=== PATIENT | female | born 1930 | race Caucasian/White ===

== ENCOUNTER 2017-06-01 05:23 | Inpatient (IN) | payer MEDICARE ==
[~2017-06-01] VITALS: Ht 139.7 cm; Wt 54.0 kg
--- NOTE | 2017-06-01 05:53 | PHYS DOC ---
General Chief Complaint: CHEST PAIN Stated Complaint: CHEST PAIN Time Seen by MD: 05:41 Source: patient, EMS Exam Limitations: other (poor historian) Problems: (ESTRELLA DENNEY DO) Time Seen by MD: 06:16 Problems: (BROOKLYNN HAND MD) History of Present Illness Initial Comments 87-year-old female brought to the ED by EMS for chest pain. Patient states that approximately 11 PM last night she developed anterior chest pain described as sharp and achy moderate in intensity worse with exertion somewhat better with rest. She had concomitant feeling of warmth no actual sweats, mild nausea no vomiting or shortness of breath no arm or neck radiation. Over time the pain has changed somewhat in quality and now patient states that her chest pain radiates straight through to her back. When she is active the pain intensifies she denies any trauma or prior chest pain workups. No relief with nitroglycerin in route patient also received aspirin. Patient is a vague historian, states she has high blood pressure high cholesterol and a "thyroid problem" as well as macular degeneration. Further she takes Pradaxa but is unaware of the reason she states that her daughter-in- law will be here shortly and she will be able to tell us the patient's medical history. Vital signs are stable on arrival the patient is in no apparent distress. Timing/Duration: other Severity: moderate Modifying Factors: worse with movement, improves with rest Associated Symptoms: chest pain, diaphoresis, other (ESTRELLA DENNEY DO) Allergies: Coded Allergies: sulfamethoxazole (Verified Allergy, Intermediate, 06/01/17) trimethoprim (Verified Allergy, Intermediate, 06/01/17) Review of Systems Constitutional: denies chills, denies fever, malaise EENTM: denies eye pain, denies ear pain, denies nose pain, denies throat pain Respiratory: denies cough, denies shortness of breath, denies wheezing Cardiovascular: chest pain, denies palpitations, denies syncope Gastrointestinal: denies abdominal pain, denies nausea, denies vomiting Genitourinary: denies dysuria, denies frequency, denies hematuria Musculoskeletal: see HPI, denies joint swelling, denies muscle pain, denies muscle stiffness, denies neck pain Psychiatric/Neurological: denies headache, denies numbness, denies paresthesia , denies weakness (ESTRELLA DENNEY DO) Physical Exam General Appearance: WD/WN, no apparent distress Ear, Nose, Throat: hearing grossly normal, normal ENT inspection, normal pharynx Neck: non-tender, supple Respiratory: chest non-tender, normal breath sounds, no respiratory distress Cardiovascular: normal peripheral pulses, regular rate, rhythm Gastrointestinal: normal bowel sounds (it was in she is drinking), non tender, soft Back: no CVA tenderness, no vertebral tenderness ( fine for Dr. Marquis'S) Extremities: non-tender, normal inspection, no pedal edema Neurologic/Psychiatric: animal feeder II-XII nml as tested, no motor/sensory deficits, alert, normal mood/affect Skin: normal color, warm/dry (ESTRELLA DENNEY DO) Orders, Labs, Meds 0605: EKG, labs, and CT evaluation of the aorta are all pending. Patient signed out to Dr. Hand at shift change, see her documentation for more history, results and patient disposition. (ESTRELLA DENNEY DO) Orders, Labs, Meds [address] [address] IMAGING REPORT Signed PATIENT: LISSETTE BOO ACCOUNT: [id number] : 1930 LOCATION: ER AGE: 87 SEX: F EXAM STATUS: REG ER ORD. PHYSICIAN: ESTRELLA DENNEY DO REASON: cp rad to back PROCEDURE: CT ANGIOGRAPHY CHEST Indication: Chest pain with slight radiation to back. Technique: Axial images and coronal and sagittal reformatted images are provided. Coronal maximum intensity projection reformatted images are provided. 60 mL of intravenous Omnipaque 300 was administered without complication. No comparison is available. One or more of the following individualized dose reduction techniques were utilized for this examination: 1. Automated exposure control 2. Adjustment of the mA and/or kV according to patient size 3. Use of iterative reconstruction technique Findings: Contrast bolus is satisfactory. There is no filling defect to suggest pulmonary embolism. There is atheromatous disease in the thoracic aorta. The heart is mildly enlarged. Coronary artery calcifications are noted. Small pericardial effusion is noted. There is no hilar or mediastinal adenopathy. There is dependent atelectasis. There is no consolidation. Central airways are patent. There is granulomatous disease. There is minimal left pleural effusion. Indeterminate lesion is noted in the left kidney measuring 13 mm. There are degenerative changes in the spine. IMPRESSION: 1. Negative for pulmonary embolism. 2. Cardiomegaly. 3. Trace left pleural effusion. Electronically signed by: Enrique Dominguez MD (06/01/2017 7:17 AM) [facility] [place] DICTATED AND SIGNED BY: ENRIQUE DOMINGUEZ MD DATE: 06/01/17704 CC: MIMA FRANCO APRN; BROOKLYNN HAND MD; ESTRELLA DENNEY DO ~ EKG at 0602 showed atrial fibrillation at rate of 95, abnormal left axis deviation, left anterior fascicular block, LVH, prolonged QT, no acute ST and T wave abnormality Evaluation of patient in ER showed 87-year-old female patient with lower chest / upper abdominal pain since last night with radiation to her back since this morning that did not get better with nitroglycerin given by EMS. She had potassium of 2.8 and oral potassium was started. BUN was 26 and creatinine was 1.[address] of chest for dissection protocol was changed to only CT of chest. Zofran and Pepcid was ordered and Dr. Oreilly informed at 0639 who was agreed with plan of admission (BROOKLYNN HAND MD) Departure: Impression: Primary Impression: Acute chest pain Additional Impressions: Hypokalemia Atrial fibrillation Renal insufficiency CHF (congestive heart failure) Disposition: ADMITTED INPATIENT (At 0639) Admitting Physician: Rosenda Oreilly (BROOKLYNN HAND MD) Condition: IMPROVED ESTRELLA DENNEY DO Jun 01, 2017 05:53 BROOKLYNN HAND MD Jun 01, 2017 06:39
[2017-06-01] MEDS ORDERED: NITROGLYCERIN SUBLINGUAL 0.4 MG BOTTLE OF 25. SL PRN (06:00)
[2017-06-01] MEDS ORDERED: MORPHINE SULFATE 2 MG/ML DISP.SYRIN. IV/SQ PRN (06:00)
[2017-06-01 06:07] LABS: BASO % 1 % (0-3); EOS % 0 % (0-3); HEMATOCRIT 35.8 % (36.0-47.0); HEMOGLOBIN 12.2 g/dL (12.0-15.5); LYMPH % 12 % (24-48); MEAN CORPUSCULAR HEMOGLOBIN 30 pg (25-35); MEAN CORPUSCULAR HGB CONC 34 g/dL (31-37); MEAN CORPUSCULAR VOLUME 89 fL (79-100); MONO # 0.9 x10^3/uL (0.0-1.1); MONO % 11 % (0-9); NEUT # 6.5 x10^3uL (1.8-7.7); NEUT % 77 % (31-73); PLATELET COUNT 419 x10^3/uL (140-400); RED BLOOD COUNT 4.03 x10^6/uL (3.50-5.40); RED CELL DISTRIBUTION WIDTH 12.8 % (11.5-14.5); WHITE BLOOD COUNT 8.4 x10^3/uL (4.0-11.0)
[2017-06-01 06:27] LABS: ALBUMIN 3.2 g/dL (3.4-5.0); ALBUMIN/GLOBULIN RATIO 0.7 (1.0-1.7); CALCIUM 9.5 mg/dL (8.5-10.1); CREATININE 1.2 mg/dL (0.6-1.0); GFR 42.4; TOTAL BILIRUBIN 0.5 mg/dL (0.2-1.0); TOTAL PROTEIN 7.5 g/dL (6.4-8.2)
[2017-06-01 06:30] LABS: POTASSIUM 2.8 mmol/L (3.5-5.1)
[2017-06-01] MEDS ORDERED: CONTRAST GIVEN MC PRN (06:30)
[2017-06-01] MEDS ORDERED: IOHEXOL 300 MG/ML 50 ML VIAL. IV ONE ×2 (06:30)
[2017-06-01] MEDS ORDERED: POTASSIUM CHLORIDE 20 MEQ TABLET.ER. PO ONE (07:00)
[2017-06-01] MEDS ORDERED: IOHEXOL 300 MG/ML 75 ML VIAL. IV ONE (07:00)
[2017-06-01] MEDS ORDERED: FAMOTIDINE 20 MG/2 ML VIAL IVP ONE (07:00)
[2017-06-01] MEDS ORDERED: ONDANSETRON PF 4 MG/2 ML VIAL. IV ONE (07:00)
[2017-06-01] MEDS ORDERED: IV NORMAL SALINE 500ML 500 ML IV ONE (07:00)
--- NOTE | 2017-06-01 07:18 | RAD ---
Portable chest, 06/01/2017: History: Chest pain The heart is at the upper limits of normal in size. There is calcific plaquing of the aorta. The pulmonary vascularity is normal. No pulmonary infiltrate is seen. There is blunting of the left lateral costophrenic angle compatible with scarring versus a tiny amount of pleural fluid. IMPRESSION: 1. Aortic atherosclerosis. 2. No acute infiltrates. 3. Possible tiny left pleural effusion.
--- NOTE | 2017-06-01 07:21 | RAD ---
Indication: Chest pain with slight radiation to back. Technique: Axial images and coronal and sagittal reformatted images are provided. Coronal maximum intensity projection reformatted images are provided. 60 mL of intravenous Omnipaque 300 was administered without complication. No comparison is available. One or more of the following individualized dose reduction techniques were utilized for this examination: 1. Automated exposure control 2. Adjustment of the mA and/or kV according to patient size 3. Use of iterative reconstruction technique Findings: Contrast bolus is satisfactory. There is no filling defect to suggest pulmonary embolism. There is atheromatous disease in the thoracic aorta. The heart is mildly enlarged. Coronary artery calcifications are noted. Small pericardial effusion is noted. There is no hilar or mediastinal adenopathy. There is dependent atelectasis. There is no consolidation. Central airways are patent. There is granulomatous disease. There is minimal left pleural effusion. Indeterminate lesion is noted in the left kidney measuring 13 mm. There are degenerative changes in the spine. IMPRESSION: 1. Negative for pulmonary embolism. 2. Cardiomegaly. 3. Trace left pleural effusion. Electronically signed by: Enrique Dominguez MD (06/01/2017 7:17 AM) [facility]
[2017-06-01 08:17] VITALS: BP 125/70
[2017-06-01] MEDS ORDERED: KETOROLAC 30 MG/ML VIAL. IV ONE (09:30)
--- NOTE | 2017-06-01 09:42 | PDOC2 ---
DANUTA CRUZ W[employer] SYSTEMS DESIGNER 06/01/17 0942: CONSULT Date of Admission DATE: 06/01/17 TIME: 09:22 Reason for Consult: Chest pain Problem List Problems Medical Problems: (1) Acute chest pain Status: Acute (2) Atrial fibrillation Status: Acute (3) CHF (congestive heart failure) Status: Acute (4) Hypokalemia Status: Acute (5) Renal insufficiency Status: Acute History of Present Illness This is a pleasant 85-year-old female who presented to the emergency room with chief complaint of chest pain. She has a past medical history of chronic atrial fibrillation, hypertension, hyperlipidemia and hypothyroidism. Earlier this week she had an episode where she became generalized achiness and lack of appetite. At 1st she thought she was coming down with the flu but it lasted about 3 days without fever, cough or shortness of breath and yesterday she had a spontaneous return of her appetite. Last night around 11:00 p.m. she started to have abdominal discomfort and after about an hour it radiated up into her chest. She went to bed and fell asleep at about 3 o'clock this morning she woke up to go to the bathroom and the pain had got up into her throat and was going across her shoulder blades. She was so uncomfortable she sat up in the recliner. The pain seemed to get worse with activity and better if she could sit and relax. It was not associated with any shortness of breath, nausea, vomiting or diaphoresis. It increases with deep breathing. She finally decided to come into the emergency room for evaluation. She continues to have the pain present at this time it is in her substernal region and it feels more of like an ache that becomes a little bit more intense when she takes a deep breath. She denies any palpitations, recent change in function prior to this week, PND or orthopnea. Review of systems-review of 10 organ systems is negative except for as in HPI. Past medical/surgical - history is significant for chronic atrial fibrillation, hypertension, hyperlipidemia, cholecystectomy and hypothyroidism. Family history - no premature coronary artery disease. Social history -she lives at home and is taking care of her who has dementia. She has a great support system in her children that live closely. She denies any alcohol or tobacco use. Allergies-sulfa and trimethoprim Physical Exam Patient is an 85-year-old female. GENERAL: This is a well developed, well nourished female. No apparent distress. SKIN: Warm and dry with normal skin turgor. Negative for pallor. No lesions or rashes noted. EYES: Conjunctiva are clear. Extraocular movements are intact. No xanthelasma. HEAD AND NECK: Oral mucosa is moist. There is no cyanosis. Neck is supple. Jugular venous pressure is flat. Carotid pulses are 2/2 bilaterally. No carotid bruits. There is no obvious thyromegaly. HEART: Regular rate and rhythm. Normal S1 and S2. No S3. No S4. No significant murmur. No rub. PMI is not displaced. LUNGS: Effort is good. There is symmetric expansion bilaterally. Clear to auscultation bilaterally. No wheezes. No crackles. No rhonchi. ABDOMEN: Normal active bowel sounds. Soft. Nontender. EXTREMITIES: No clubbing. No cyanosis. No edema of lower extremities. Palpable pedal pulses. MUSCULOSKELETAL: No kyphosis. No scoliosis. No localized tenderness or stiffness. Gait appears normal. NEUROLOGIC: Alert and oriented times three. Cranial nerves III-XII are grossly intact. Good motor tone and strength in the upper and lower extremities bilaterally. PSYCHOLOGIC: This is a pleasant patient with a normal affect. Procedure Documentation ECHOCARDIOGRAM IMPRESSION (06/28/2015): The left ventricle is normal in size. There is borderline concentric left ventricular hypertrophy. There is asymmetric thickening of the basal septum with an increase in LVOT velocity of 1.4 m/s. No significant regional wall motion abnormalities are identified. The left ventricular systolic function is normal with an estimated ejection fraction of 65-70%. The left ventricular diastolic cannot be determined. The left atrium appears mildly dilated. The proximal ascending aorta appears mildly dilated at 3.6 cm. There is mild aortic valve sclerosis. There is mild mitral annular calcification. There is mild aortic, pulmonic and tricuspid regurgitation. The estimated pulmonary artery systolic pressure is 36 mmHg, consistent with mild pulmonary hypertension. Compared to the report (images were not available for review) of the study dated 06/25/2014, left atrial and proximal ascending aortic dilatation are new findings. LEXISCAN NUCLEAR STRESS TEST IMPRESSION (07/01/2014): Hemodynamic response: There was a normal heart rate and a normal blood pressure response to stress. Clinical response: There was no chest pain during stress. Arrhythmias: Premature ventricular complexes. Stress ECG: There were no significant stress induced ECG changes. Myocardial perfusion: Normal perfusion without evidence of infarction or ischemia. Wall motion: Normal. Ejection fraction: 70%. Compared to the report (images were not available for review) from the previous study performed on 10/12/2012, there was no significant change. ECHOCARDIOGRAM IMPRESSION (06/25/2014): There is mild concentric left ventricular hypertrophy. There is asymmetric thickening of the basal septum with a mild increase in LVOT velocity of 1.3 m/ s. The left ventricular systolic function is normal with an estimated ejection fraction of 61%. There is evidence of decreased diastolic compliance of the left ventricle consistent with mild diastolic dysfunction. There is mild aortic valve sclerosis. There is mild aortic regurgitation. The estimated pulmonary artery systolic pressure is 38 mmHg, consistent with mild pulmonary hypertension. Compared to the report (images were not available for review) of the study dated 10/02/2012 , mild pulmonary hypertension is a new finding. PRELIMINARY EVENT RECORDER REPORT (06/18/2014): 14 beat run of irregular paroxysmal supraventricular tachycardia at a heart rate of 127 bpm, possible atrial fibrillation. CAROTID ULTRASOUND IMPRESSION (11/15/2012): Bilateral within normal limits ICA. Bilateral vertebral antegrade flow. Assessment / Plan Chest pain - Likely pleurisy. Plan for Tordol. Continue with rule out protocol. Plan for OP echocardiogram Atrial fibrillation, paroxysmal vs permanent. The patient is currently in atrial fibrillation with a controlled rate. [id number] score is 3. Continue Pradaxa for stroke prophylaxis. Continue Diltiazem for rate management. We stopped her Multaq due to failure to keep her in sinus rhythm and cost. She is asymptomatic with her atrial fibrillation. Hypertension, controlled. Continue present anti-hypertensive medication. Hyperlipidemia. Her goal LDL is < 100 mg/dL. Continue Pravastatin Aortic regurgitation, Mild. Pulmonary Hypertension, Mild Current Medications Current Medications Nitroglycerin (Nitrostat) 0.4 mg PRN Q5MIN PRN SL CP RATING > 1/10; Start at 06:00; Stop 06/02/17 at 05:59 Morphine Sulfate (Morphine 2mg Syringe) 2 mg PRN Q15MIN PRN IV/SQ PAIN GREATER THAN 3/10; Start 06/01/17 at 06:00; Stop 06/02/17 at 05:59 Iohexol (Omnipaque 300 Mg/ml) 50 ml 1X ONCE IV ; Start 06/01/17 at 06:30; Stop 06/01/17 at 06:31; Status Cancel Iohexol (Omnipaque 300 Mg/ml) 50 ml 1X ONCE IV ; Start 06/01/17 at 06:30; Stop 06/01/17 at 06:31; Status Cancel Info (Do NOT chart on this entry -- for MONITORING) 1 each PRN DAILY PRN MC SEE COMMENTS; Start 06/01/17 at 06:30; Stop 06/03/17 at 06:29 Ondansetron HCl (Zofran) 4 mg 1X ONCE IV Last administered on 06/01/17at 07:11; Start 06/01/17 at 07:00; Stop 06/01/17 at 07:01; Status DC Sodium Chloride 500 ml @ 500 mls/hr 1X ONCE IV Last administered on 06/01/17at 07:10; Start 06/01/17 at 07:00; Stop 06/01/17 at 07:59; Status DC Famotidine (Pepcid Vial) 20 mg 1X ONCE IVP Last administered on 06/01/17at 07:11 ; Start 06/01/17 at 07:00; Stop 06/01/17 at 07:01; Status DC Potassium Chloride (Klor-Con) 40 meq 1X ONCE PO Last administered on 06/01/17at 07:11; Start 06/01/17 at 07:00; Stop 06/01/17 at 07:01; Status DC Iohexol (Omnipaque 300 Mg/ml) 75 ml 1X ONCE IV Last administered on 06/01/17at 06:55; Start 06/01/17 at 07:00; Stop 06/01/17 at 07:01; Status DC Fentanyl Citrate (Fentanyl 2ml Vial) 50 mcg 1X ONCE IM Last administered on 06/01/17at 07:41; Start 06/01/17 at 08:00; Stop 06/01/17 at 08:01; Status DC Ketorolac Tromethamine (Toradol) 30 mg 1X ONCE IV ; Start 06/01/17 at 09:30; Stop 06/01/17 at 09:31 Allergies: Coded Allergies: sulfamethoxazole (Verified Allergy, Intermediate, 06/01/17) trimethoprim (Verified Allergy, Intermediate, 06/01/17) VITALS Vital Signs Date Time Temp Pulse Resp B/P (MAP) Pulse Ox O2 Delivery O2 Flow Rate FiO2 06/01/17 08:17 98.3 95 125/70 (88) 96 Room Air 06/01/17 07:56 22 06/01/17 05:23 94.0 Labs Laboratory Tests Test 06/01/17 05:41 White Blood Count 8.4 x10^3/uL (4.0-11.0) Red Blood Count 4.03 x10^6/uL (3.50-5.40) Hemoglobin 12.2 g/dL (12.0-15.5) Hematocrit 35.8 % (36.0-47.0) Mean Corpuscular Volume 89 fL (79-100) Mean Corpuscular Hemoglobin 30 pg (25-35) Mean Corpuscular Hemoglobin Concent 34 g/dL (31-37) Red Cell Distribution Width 12.8 % (11.5-14.5) Platelet Count 419 x10^3/uL (140-400) Neutrophils (%) (Auto) 77 % (31-73) Lymphocytes (%) (Auto) 12 % (24-48) Monocytes (%) (Auto) 11 % (0-9) Eosinophils (%) (Auto) 0 % (0-3) Basophils (%) (Auto) 1 % (0-3) Neutrophils # (Auto) 6.5 x10^3uL (1.8-7.7) Lymphocytes # (Auto) 1.0 x10^3/uL (1.0-4.8) Monocytes # (Auto) 0.9 x10^3/uL (0.0-1.1) Eosinophils # (Auto) 0.0 x10^3/uL (0.0-0.7) Basophils # (Auto) 0.0 x10^3/uL (0.0-0.2) Prothrombin Time 14.0 SEC (9.4-11.4) Prothromb Time International Ratio 1.4 (0.9-1.1) Activated Partial Thromboplast Time 42 SEC (23-33) D-Dimer (Lesli) 0.63 mg/L (0.00-0.50) Sodium Level 131 mmol/L (136-145) Potassium Level 2.8 mmol/L (3.5-5.1) Chloride Level 92 mmol/L (98-107) Carbon Dioxide Level 31 mmol/L (21-32) Anion Gap 8 (6-14) Blood Urea Nitrogen 26 mg/dL (7-20) Creatinine 1.2 mg/dL (0.6-1.0) Estimated GFR (Cockcroft-Gault) 42.4 BUN/Creatinine Ratio 22 (6-20) Glucose Level 142 mg/dL (70-99) Calcium Level 9.5 mg/dL (8.5-10.1) Total Bilirubin 0.5 mg/dL (0.2-1.0) Aspartate Amino Transf (AST/SGOT) 23 U/L (15-37) Alanine Aminotransferase (ALT/SGPT) 19 U/L (14-59) Alkaline Phosphatase 98 U/L (46-116) Creatine Kinase 103 U/L (26-192) Bedside Troponin I 0.01 ng/ml (<0.08) CW-Lir-R-Type Natriuretic Peptide 1642 pg/mL (0-449) Total Protein 7.5 g/dL (6.4-8.2) Albumin 3.2 g/dL (3.4-5.0) Albumin/Globulin Ratio 0.7 (1.0-1.7) Lipase 82 U/L (73-393) TIFFANY GARRETT Jr, MD 06/01/17 1001: CONSULT Reason for Consult: Chest pain. Referring Physician: Rosenda Oreilly MD Chief Complaint Chest pain. Source: Patient History of Present Illness She is a pleasant 87-year-old female who is well known to our service. She had been doing well until last evening when she was at home and bent over to get something off the floor. After she stood up, she developed left-sided pleuritic chest pain. She denies associated symptoms at that time. This was mild. She then went to sleep. However, at approximately 01:00, she got up to use the bathroom and she still had chest pain. At that point the chest pain radiated to both shoulders and her back. This was worse with deep breaths. Moving in different positions would seem to make this better or worse. She describes this as a pain. Because of the pain, she called 911 and was taken to the emergency room for further evaluation. In the ambulance she was given nitroglycerin and this did not change the pain. In the emergency room she was given 1 dose of IV fentanyl and this also did not help with the pain. When I saw her on the medical unit, she was still having mild chest discomfort that was still pleuritic. She states that she has had no appetite for the past couple of days. However, she denies any nausea, vomiting, or diarrhea. She does have occasional constipation which is unchanged. She denies any abdominal pain. She denies any fever or chills. She denies any shortness of breath except for the fact that the chest pain is pleuritic and this makes it hard for her to take deep breaths. She denies any paroxysmal nocturnal dyspnea, orthopnea, palpitations, lightheadedness, syncope, or lower extremity edema. Because of the chest pain, a cardiology consultation was requested. Allergies: Coded Allergies: sulfamethoxazole (Verified Allergy, Intermediate, 06/01/17) trimethoprim (Verified Allergy, Intermediate, 06/01/17) Review of System Review of 10 organ systems is as per the HPI, otherwise negative. General: Alert, Oriented X3, Cooperative, No acute distress HEENT: Atraumatic, EOMI, Mucous membr. moist/pink Lungs: Clear to auscultation, Normal air movement Heart: Normal S1, Normal S2, No murmurs, Other (Irregularly irregular heart rate.) Abdomen: Normal bowel sounds, Soft, No tenderness, No hepatospenomegaly Extremities: No clubbing, No cyanosis, No edema, Normal pulses, No tenderness/ swelling Skin: No rashes, No breakdown, No significant lesion Neuro: Normal speech, Strength at 5/5 X4 ext, Normal tone, Cranial nerves 3-12 NL Psych/Mental Status: Mental status NL, Mood NL Assessment/Plan Chest pain. Exact etiology unclear. She does not have any ischemic changes on her electrocardiogram. Her 1st troponin level is negative. This sounds more consistent with pleurisy. She does have evidence of a pleural effusion on her x -ray with no evidence of pulmonary infiltrate. I suspect she could possibly have bronchitis. I do not believe this chest pain is related to any sort of cardiac disorder. We will obtain follow-up troponin levels. I will give her 1 dose of IV Toradol to see if this helps with the chest pain. We will plan on an outpatient echocardiogram after discharge. Atrial fibrillation, paroxysmal. Her electrocardiogram from the emergency room shows possible atrial fibrillation versus multifocal atrial tachycardia. We will continue oral anticoagulation for stroke prevention. She was previous in the Multaq but this did not maintain sinus rhythm and this was expensive so we discontinued the medication. Essential hypertension. Blood pressure appears reasonably controlled with the present medications. These should be continued. Hypercholesterolemia. I recommend she continue on the statin medication. Disposition. If she is doing well by later today she could potentially be discharged home later this afternoon or possibly tomorrow. I will leave this up to the discretion of the hospitalist. Problems: DANUTA CRUZ APRN Jun 01, 2017 09:42 TIFFANY GARRETT Jr, MD Jun 01, 2017 10:01
[2017-06-01 10:53] VITALS: BP 113/65
[2017-06-01 11:51] LABS: INFLUENZA A PATIENT NEGATIVE (NEGATIVE); INFLUENZA B PATIENT NEGATIVE (NEGATIVE)
[2017-06-01] MEDS ORDERED: PNEUMOC CONJ VACC 23-VALENT 0.5 ML VIAL. VAX IM ONE (13:00)
[2017-06-01] MEDS ORDERED: LOSA1TAB22 PO (13:53)
[2017-06-01] MEDS ORDERED: LEVO75TA5 PO (13:53)
[2017-06-01] MEDS ORDERED: OMEG-33 PO (13:53)
[2017-06-01] MEDS ORDERED: CALC600T4 PO (13:53)
[2017-06-01] MEDS ORDERED: PRAV20TA2 PO (13:53)
[2017-06-01] MEDS ORDERED: CHOL10003 PO (13:53)
[2017-06-01] MEDS ORDERED: LORA10TA68 PO (13:53)
[2017-06-01] MEDS ORDERED: BIOT300T PO (13:53)
[2017-06-01] MEDS ORDERED: DABI150C PO (13:53)
[2017-06-01] MEDS ORDERED: DILT60TA PO (13:53)
[2017-06-01 16:14] VITALS: BP 125/70
[2017-06-01 17:13] LABS: CALCIUM 8.8 mg/dL (8.5-10.1); CREATININE 0.8 mg/dL (0.6-1.0); GFR 67.7; POTASSIUM 3.2 mmol/L (3.5-5.1)
--- NOTE | 2017-06-01 17:57 | EKG ---
[address] [address] Test Date: 2017-06-01 Test Time: 17:53:07 Pat Name: LISSETTE BOO Department: Room: Gender: F Systems Auditor: RADHA : 1930 Requested By: ESTRELLA DENNEY Order Number: [id number] Reading MD: Measurements Intervals [place] Rate: 96 P: [place]: QRS: -38 QRSD: 106 T: 71 QT: 350 QTc: 449 Interpretive Statements IRREGULAR RHYTHM, NO P-WAVE FOUND ABNORMAL LEFT AXIS DEVIATION LEFT ANTERIOR FASCICULAR BLOCK LEFT VENTRICULAR HYPERTROPHY T ABNORMALITY IN HIGH LATERAL LEADS ABNORMAL ECG RI6.01 No previous ECG available for comparison
--- NOTE | 2017-06-01 18:04 | HP ---
ADMIT DATE: 06/01/2017 HISTORY OF PRESENT ILLNESS: The patient is an 87-year-old female patient who basically presented to Emergency Room with chief complaint of chest pain that basically started as generalized aches and pains with lack of appetite. At first, she thought she was coming down with a flu, but it lasted about 3 days without any fever, cough or shortness of breath and yesterday, she had a spontaneous return of her appetite. Last night, she developed abdominal discomfort for about an hour. It radiated up to the anterior chest. She went to bed and fell asleep. At about 03:00, this morning, she woke up to go to the bathroom and the pain got up into her throat and was going across the shoulder blades and it became so severe that she has to sit up in a recliner and the pain that seemed to get worse with activity and better if she could sit and relax. It was not associated with any shortness of breath, nausea, vomiting or diaphoresis. It increases with deep breathing. She finally decided to come into the Emergency Room for evaluation. By the time I saw her this afternoon, she was chest pain free. She was basically evaluated in the Emergency Room, she was found to have hypokalemia and her first set of cardiac enzyme was negative. She was admitted to do 2 more sets of cardiac enzyme and to consult the cardiology team. PAST MEDICAL HISTORY: Significant for chronic atrial fibrillation, hypertension, hyperlipidemia and hypothyroidism. PAST SURGICAL HISTORY: Significant for cholecystectomy. FAMILY HISTORY: Unremarkable. SOCIAL HISTORY: She lives at home, taking care of her who has dementia and she has great support system in her children that live closely. She does not smoke, drink alcohol or do recreational drugs. ALLERGIES: She is allergic to SULFAMETHOXAZOLE, TRIMETHOPRIM. MEDICATIONS: She is currently on following medications: She is on biotin 5000 mcg daily, calcium carbonate 600 mg twice a day, diltiazem 180 mg once a day, loratadine 10 mg once a day, losartan/hydrochlorothiazide one tablet daily, omega 3 fatty acid 1 capsule once a day, pravastatin 20 mg at bedtime, levothyroxine sodium 75 mcg once a day, Pradaxa 150 mg twice a day, cholecalciferol, vitamin D 2000 international units once a day. REVIEW OF SYSTEMS: Unremarkable and as per history of present illness. PHYSICAL EXAMINATION GENERAL: When I examined her, she was resting, slightly propped up in bed, in no apparent respiratory distress, pale, but no jaundice, cyanosis, or thyromegaly. No jugular distension. No lower limb edema. VITAL SIGNS: Her heart rate was 93, blood pressure was 125/70, temperature was 99.3, respiratory rate 20, and oxygen saturation was 94% on room air. HEAD, EYES, EARS, NOSE AND THROAT: Showed normocephalic, atraumatic. NECK: Supple. HEART: Showed normal first and second heart sounds with no gallop, rub or murmur. CHEST: Clear to auscultation. No crepitation or rhonchi. ABDOMEN: Scaphoid, soft, nontender. NEUROLOGIC: She is awake, alert, responding appropriately. Cranial nerves intact. She moves extremities without difficulty. She ambulates without assistance or assistive devices. LABORATORY DATA AND IMAGING: While in the Emergency Room, she has lab work that includes a CBC with a white cell count of 8400, hemoglobin 12.2, hematocrit 36, MCV 89 and platelet count of 108770. Her prothrombin time was 14, INR 1.4, aPTT 42. D-dimer was 0.63. Her chemistry showed a serum sodium 131, potassium ____, chloride 92, bicarbonate 31, anion gap of 8, BUN 26, creatinine 1.2, estimated GFR was 42 mL per minute. Her glucose 142, calcium was 9.5. Total bilirubin, AST, ALT, alkaline phosphatase were normal. Her beta natriuretic peptide was 1642. Total protein 7.5, albumin was 3.2. Her chest x-ray showed that the heart is upper limit of normal in size. There is calcific plaquing of the aorta, pulmonary vascularity is normal. No pulmonary infiltrates are seen. There is blunting in the left lateral costophrenic angle, compatible with scarring versus a tiny amount of pleural fluid with the impression that the patient has acute aortic atherosclerosis. No acute infiltrates and possible tiny left pleural effusion. The CT scan of the chest showed that there is no filling defect to suggest pulmonary embolism. There is atheromatous disease in the thoracic aorta. The heart is mildly enlarged. Coronary artery calcification are noted. Small pericardial effusion is noted. There is no hilar or mediastinal adenopathy. There is dependent atelectasis. There is no consolidation. Central airways are patent. There is granulomatous disease. There is minimal left pleural effusion, indeterminate lesion is noted in the left kidney measuring 30 mm. There are degenerative changes in the spine. IMPRESSION: So, basically this is an 87-year-old female patient who came in with chest pain that seemed to be pleuritic which aggravated by taking a deep breath. Denied any nausea, vomiting, diaphoresis or shortness of breath, orthopnea, paroxysmal nocturnal dyspnea. Her first set of cardiac enzyme was negative as well. Her EKG showed that she was in atrial fibrillation at rate of 95 with normal left axis deviation, left anterior fascicular block, left ventricular hypertrophy with prolongation of QT interval, no acute ST-T changes. PLAN: My plan is to do 2 more sets of cardiac enzyme and basically continued all his medication. I will do a stat lab work this afternoon to make sure that her potassium is well replenished and we might have to discontinue her hydrochlorothiazide as probably the culprit for her hypokalemia. I will arrange to probably starting her on antibiotic for what seemed to be community-acquired pneumonia as she started to spike her temperature, it is now 100, and we will decide the further medication management accordingly. ANGEL CARDOZA MD DR: VICKI/krissy JOB#: [id number] / [id number]
[2017-06-01 19:00] VITALS: BP 143/72
[2017-06-01] MEDS: cefTRIAXone IV Push 1 GM VIAL. IVP SCH (19:18)
[2017-06-01] MEDS: CALCIUM CARBONATE 500 MG TABLET PO SCH (19:19)
[2017-06-01] MEDS: POTASSIUM CHLORIDE 20 MEQ TABLET.ER. PO SCH (19:19)
[2017-06-01] MEDS: DABIGATRAN ETEXILATE 75 MG CAPSULE. PO SCH (19:56)
[2017-06-01] MEDS: PRAVASTATIN 20 MG TABLET. PO SCH (19:57)
[2017-06-01] MEDS: AZITHROMYCIN 250 MG TABLET. PO SCH (19:57)
[2017-06-01] MEDS: LACTOBACILLUS RHAMNOSUS GG 1 CAPSULE. PO SCH (19:57)
[2017-06-01 23:00] VITALS: BP 138/94
[2017-06-02 05:00] VITALS: BP 147/78
[2017-06-02] MEDS: LEVOTHYROXINE 75 MCG TABLET PO SCH (05:47)
[2017-06-02 06:09] LABS: CLARITY,URINE CLEAR; COLOR,URINE YELLOW; GLUCOSE,URINE NEG (NEG)
[2017-06-02 06:10] LABS: BILIRUBIN,URINE NEG (NEG); NITRITE,URINE NEG (NEG); UROBILINOGEN,URINE 0.2 mg/dL (0.2 mg/dL); WBC,URINE OCC /HPF (0-4)
[2017-06-02 06:11] LABS: BACTERIA,URINE FEW /HPF (0-FEW); SQUAMOUS EPITHELIAL CELL,UR FEW /LPF
[2017-06-02 06:24] LABS: HEMOGLOBIN 12.7 g/dL (12.0-15.5); RED BLOOD COUNT 4.14 x10^6/uL (3.50-5.40); WHITE BLOOD COUNT 9.3 x10^3/uL (4.0-11.0)
[2017-06-02 06:37] LABS: ALBUMIN 2.7 g/dL (3.4-5.0); ALBUMIN/GLOBULIN RATIO 0.6 (1.0-1.7); CALCIUM 9.4 mg/dL (8.5-10.1); CREATININE 0.9 mg/dL (0.6-1.0); GFR 59.1; POTASSIUM 3.9 mmol/L (3.5-5.1); TOTAL BILIRUBIN 0.5 mg/dL (0.2-1.0); TOTAL PROTEIN 7.2 g/dL (6.4-8.2)
[2017-06-02] MEDS: hydroCHLOROthiazide 25 MG TABLET PO SCH (08:32)
[2017-06-02] MEDS: LACTOBACILLUS RHAMNOSUS GG 1 CAPSULE. PO SCH ×2 (08:33→20:21)
[2017-06-02] MEDS: LOSARTAN 50 MG TABLET. PO SCH (08:33)
[2017-06-02] MEDS: CALCIUM CARBONATE 500 MG TABLET PO SCH ×2 (08:33→17:57)
[2017-06-02] MEDS: CETIRIZINE HCL 10 MG TABLET PO SCH (08:33)
[2017-06-02] MEDS: DABIGATRAN ETEXILATE 75 MG CAPSULE. PO SCH ×2 (08:33→20:21)
[2017-06-02] MEDS: CHOLECALCIFEROL (VITAMIN D3) 1,000 UNIT TABLET PO SCH (08:33)
[2017-06-02] MEDS: OMEGA-3 FATTY ACIDS/FISH OIL 1,000 MG CAPSULE. PO SCH (08:34)
[2017-06-02] MEDS: POTASSIUM CHLORIDE 20 MEQ TABLET.ER. PO SCH ×3 (08:34→17:57)
[2017-06-02 10:57] VITALS: BP 113/62
[2017-06-02 14:24] VITALS: BP 99/61
[2017-06-02] MEDS: cefTRIAXone IV Push 1 GM VIAL. IVP SCH (17:58)
[2017-06-02 19:15] VITALS: BP 109/59
[2017-06-02] MEDS: AZITHROMYCIN 250 MG TABLET. PO SCH (20:21)
[2017-06-02] MEDS: PRAVASTATIN 20 MG TABLET. PO SCH (20:21)
--- NOTE | 2017-06-02 20:24 | PN ---
DATE: 06/02/2017 SUBJECTIVE: The patient is sitting comfortably in her chair, watching TV, in no apparent distress. She denied any complaint. However, she did continue to spike her temperature. We did actually start her on Rocephin and Zithromax yesterday. She has left-sided pleuritic chest pain and also possible left lower lobe infiltrate. OBJECTIVE: GENERAL: When I saw her this afternoon, she looked somewhat pale, but no jaundice, cyanosis, lymphadenopathy or thyromegaly. No jugular venous distension. No limb edema. VITAL SIGNS: Her heart rate was 66, blood pressure was 99/61, temperature was 100.1, respiratory rate was 18 and oxygen saturation was 93% on room air. HEAD, EYES, EARS, NOSE AND THROAT: Showed normocephalic, atraumatic. NECK: Supple. HEART: Showed normal first and second sounds. No gallop, rub or murmur. CHEST: Clear to auscultation. No crepitation or rhonchi. ABDOMEN: Distended, soft, nontender. No guarding or rigidity. No organomegaly. Hernial orifices intact. Bowel sounds normal. 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 Otherwise, her cranial nerves intact. She moves extremities without difficulty, she ambulates without assistance or assistive devices. Her intake over the last 24 hours was 1080, no output was recorded. LABORATORY DATA: As of this morning showed serum sodium is slightly up at 133, potassium 3.9, chloride 96, bicarbonate 30, anion gap of 7, BUN 21, creatinine 0.9, estimated GFR was 59 mL per minute. Her glucose 100, calcium was 9.4. Total bilirubin and alkaline phosphatase normal. AST, ALT elevated. Her total protein was 7.2, albumin 2.7. TSH was 1.75. Her white cell count was 9300, hemoglobin 12.7, hematocrit 37, MCV 89 and platelet count 275,000. Her influenza A and B were negative. Urinalysis was essentially unremarkable. ASSESSMENT: Left-sided pleuritic chest pain, aggravated by taking deep breath, possible community-acquired pneumonia for which we started her on IV Rocephin and Zithromax. Other medical problems include chronic atrial fibrillation, rate controlled; hypertension, well controlled; hyperlipidemia as well as hypothyroidism. PLAN: To continue with IV Rocephin and Zithromax. Continue with all her other medications. I will continue to monitor her lab work, in particular to make sure sodium and potassium normalized. ANGEL CARDOZA MD DR: VICKI/krissy JOB#: [id number] / [id number]
[2017-06-02 23:03] VITALS: BP 119/73
[2017-06-03 05:30] VITALS: BP 137/67
[2017-06-03] MEDS: LEVOTHYROXINE 75 MCG TABLET PO SCH (06:47)
[2017-06-03 07:46] LABS: CREATININE 0.8 mg/dL (0.6-1.0); GFR 67.7; POTASSIUM 4.3 mmol/L (3.5-5.1)
[2017-06-03 07:47] LABS: HEMATOCRIT 33.9 % (36.0-47.0); HEMOGLOBIN 11.7 g/dL (12.0-15.5); RED BLOOD COUNT 3.84 x10^6/uL (3.50-5.40); RED CELL DISTRIBUTION WIDTH 12.7 % (11.5-14.5); WHITE BLOOD COUNT 7.2 x10^3/uL (4.0-11.0)
[2017-06-03] MEDS: CALCIUM CARBONATE 500 MG TABLET PO SCH ×2 (08:19→17:20)
[2017-06-03] MEDS: LACTOBACILLUS RHAMNOSUS GG 1 CAPSULE. PO SCH ×2 (08:19→19:53)
[2017-06-03] MEDS: POTASSIUM CHLORIDE 20 MEQ TABLET.ER. PO SCH ×3 (08:19→17:20)
[2017-06-03] MEDS: DABIGATRAN ETEXILATE 75 MG CAPSULE. PO SCH ×2 (08:19→19:53)
[2017-06-03] MEDS: CETIRIZINE HCL 10 MG TABLET PO SCH (08:19)
[2017-06-03] MEDS: CHOLECALCIFEROL (VITAMIN D3) 1,000 UNIT TABLET PO SCH (08:20)
[2017-06-03] MEDS: hydroCHLOROthiazide 25 MG TABLET PO SCH (08:20)
[2017-06-03] MEDS: LOSARTAN 50 MG TABLET. PO SCH (08:20)
[2017-06-03] MEDS: OMEGA-3 FATTY ACIDS/FISH OIL 1,000 MG CAPSULE. PO SCH (08:20)
[2017-06-03 11:16] VITALS: BP 133/71
--- NOTE | 2017-06-03 11:32 | EKG ---
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
[2017-06-03 14:29] VITALS: BP 111/65
--- NOTE | 2017-06-03 15:29 | PN ---
DATE: 06/03/2017 SUBJECTIVE: The patient is resting slightly propped up in bed, in no apparent respiratory distress. On questioning her, she is continuing to have cough, it is mostly dry. Denied any chest pain. Did spike her temperature last night; however, today, she is afebrile. PHYSICAL EXAMINATION: GENERAL: When I examined her, she was slightly pale, but not jaundiced, cyanosed from thyromegaly. No jugular venous distension. No limb edema. VITAL SIGNS: Her heart rate was 79, blood pressure 133/71, temperature was 98.3, respiratory rate was 20, and oxygen saturation was 95% on room air. HEAD, EYES, EARS, NOSE, AND THROAT: Showed she is normocephalic, atraumatic. NECK: Supple. HEART: Showed normal first and second heart sounds. No gallop, rub, or murmur. CHEST: Clear to auscultation. No crepitation or rhonchi. ABDOMEN: Distended, soft and nontender. NEUROLOGIC: She has poor vision. She apparently has senile macular degeneration. Otherwise, all her cranial nerves are intact. She moves her extremities without difficulty. She ambulates without assistance or assistive devices. Her intake was 1760, output was 1000. LABORATORY DATA: Her lab work this morning showed a white cell count of 7200, hemoglobin 11.7, hematocrit 33.9, MCV 88, and platelet count 340,000. Her chemistry showed her serum sodium to be 133, potassium 4.3, chloride 98, bicarbonate 29, anion gap of 6, BUN 19, creatinine 0.8, estimated GFR of 68 mL per minute, her glucose was 87, calcium was 9. TSH was 1.75. ASSESSMENT: 1. Left-sided pleuritic chest pain aggravated with taking breath, possible community-acquired pneumonia. Plan is to continue with IV Rocephin and Zithromax. 2. Chronic atrial fibrillation, rate controlled, well anticoagulated. 3. Hypertension, well controlled. 4. Hyperlipidemia. 5. Hypothyroidism. The patient is both clinically and biochemically euthyroid. 6. Hypokalemia, resolved. Her potassium is up from 3.2 to 4.3. 7. Hyponatremia, resolved. Her serum sodium has risen from 131 to 133. PLAN: To discharge her home tomorrow to continue on oral perhaps Vantin and Zithromax. ANGEL CARDOZA MD DR: Dahiana JOB#: [id number] / [id number]
[2017-06-03] MEDS: cefTRIAXone IV Push 1 GM VIAL. IVP SCH (17:21)
[2017-06-03 19:36] VITALS: BP 132/69
[2017-06-03] MEDS: AZITHROMYCIN 250 MG TABLET. PO SCH (19:53)
[2017-06-03] MEDS: PRAVASTATIN 20 MG TABLET. PO SCH (19:53)
[2017-06-03 23:00] VITALS: BP 126/62
[2017-06-04] MEDS: LEVOTHYROXINE 75 MCG TABLET PO SCH (05:25)
[2017-06-04 06:05] VITALS: BP 156/76
--- NOTE | 2017-06-04 08:42 | PDOC ---
DANUTA CRUZ GRAVEL WEIGHER 06/04/17 0842: PROGRESS NOTES Diagnosis Problem Problems Medical Problems: (1) Acute chest pain Status: Acute (2) Atrial fibrillation Status: Acute (3) CHF (congestive heart failure) Status: Acute (4) Hypokalemia Status: Acute (5) Renal insufficiency Status: Acute Assessment Problems We are seeing the patient for chest pain Chest pain - RI ruled out. Resolved with Tordol. Pleuritic in nature and being treated for CAP.Plan for OP echocardiogram Atrial fibrillation, Chronic. The patient is currently in atrial fibrillation with a controlled rate. [id number] score is 3. Plan to discharge on lower dose of Pradaxa for stroke prophylaxis. Her weight is 115 and she is older than 79. Her GFR is normal. She uses samples at home and goes between Pradaxa and Eliquis - which either we have in stock. Continue Diltiazem for rate management. We stopped her Multaq due to failure to keep her in sinus rhythm and cost. She is asymptomatic with her atrial fibrillation. Hypertension, controlled. Continue present anti-hypertensive medication. Hyperlipidemia. Her goal LDL is < 100 mg/dL. Continue Pravastatin Aortic regurgitation, Mild. Pulmonary Hypertension, Mild Problems: Subjective She is feeling better and ready to go home. Chest pain has resolved. Denies shortness of breath or palpitations. Objective Vital Signs Date Time Temp Pulse Resp B/P (MAP) Pulse Ox O2 Delivery O2 Flow Rate FiO2 06/04/17 06:05 98.4 91 20 156/76 (102) Room Air 06/03/17 23:00 92 06/01/17 05:23 94.0 Intake and Output 06/04/17 07:00 Intake Total 1440 ml Output Total 2350 ml Balance -910 ml Intake Oral 1440 ml Output Urine Total 2350 ml # Voids 3 Abdomen: Normal bowel sounds, Soft, No tenderness Heart: Regular rate, Normal S1, Normal S2, Other (irregular rhythm) General: Alert, Oriented X3, Cooperative HEENT: EOMI, Mucous membr. moist/pink Lungs: Clear to auscultation Psych/Mental Status: Mental status NL, Mood NL Review of Relevant I have reviewed the following items joe (where applicable) has been applied. Labs Laboratory Tests Test 06/03/17 06:35 White Blood Count 7.2 x10^3/uL (4.0-11.0) Red Blood Count 3.84 x10^6/uL (3.50-5.40) Hemoglobin 11.7 g/dL (12.0-15.5) Hematocrit 33.9 % (36.0-47.0) Mean Corpuscular Volume 88 fL (79-100) Mean Corpuscular Hemoglobin 30 pg (25-35) Mean Corpuscular Hemoglobin Concent 34 g/dL (31-37) Red Cell Distribution Width 12.7 % (11.5-14.5) Platelet Count 340 x10^3/uL (140-400) Sodium Level 133 mmol/L (136-145) Potassium Level 4.3 mmol/L (3.5-5.1) Chloride Level 98 mmol/L (98-107) Carbon Dioxide Level 29 mmol/L (21-32) Anion Gap 6 (6-14) Blood Urea Nitrogen 19 mg/dL (7-20) Creatinine 0.8 mg/dL (0.6-1.0) Estimated GFR (Cockcroft-Gault) 67.7 Glucose Level 87 mg/dL (70-99) Calcium Level 9.0 mg/dL (8.5-10.1) Medications Current Medications Nitroglycerin (Nitrostat) 0.4 mg PRN Q5MIN PRN SL CP RATING > 1/10; Start at 06:00; Stop 06/02/17 at 05:59; Status DC Morphine Sulfate (Morphine 2mg Syringe) 2 mg PRN Q15MIN PRN IV/SQ PAIN GREATER THAN 3/10; Start 06/01/17 at 06:00; Stop 06/02/17 at 05:59; Status DC Iohexol (Omnipaque 300 Mg/ml) 50 ml 1X ONCE IV ; Start 06/01/17 at 06:30; Stop 06/01/17 at 06:31; Status Cancel Iohexol (Omnipaque 300 Mg/ml) 50 ml 1X ONCE IV ; Start 06/01/17 at 06:30; Stop 06/01/17 at 06:31; Status Cancel Info (Do NOT chart on this entry -- for MONITORING) 1 each PRN DAILY PRN MC SEE COMMENTS; Start 06/01/17 at 06:30; Stop 06/03/17 at 06:29; Status DC Ondansetron HCl (Zofran) 4 mg 1X ONCE IV Last administered on 06/01/17at 07:11; Start 06/01/17 at 07:00; Stop 06/01/17 at 07:01; Status DC Sodium Chloride 500 ml @ 500 mls/hr 1X ONCE IV Last administered on 06/01/17at 07:10; Start 06/01/17 at 07:00; Stop 06/01/17 at 07:59; Status DC Famotidine (Pepcid Vial) 20 mg 1X ONCE IVP Last administered on 06/01/17at 07:11 ; Start 06/01/17 at 07:00; Stop 06/01/17 at 07:01; Status DC Potassium Chloride (Klor-Con) 40 meq 1X ONCE PO Last administered on 06/01/17at 07:11; Start 06/01/17 at 07:00; Stop 06/01/17 at 07:01; Status DC Iohexol (Omnipaque 300 Mg/ml) 75 ml 1X ONCE IV Last administered on 06/01/17at 06:55; Start 06/01/17 at 07:00; Stop 06/01/17 at 07:01; Status DC Fentanyl Citrate (Fentanyl 2ml Vial) 50 mcg 1X ONCE IM Last administered on 06/01/17at 07:41; Start 06/01/17 at 08:00; Stop 06/01/17 at 08:01; Status DC Ketorolac Tromethamine (Toradol) 30 mg 1X ONCE IV ; Start 06/01/17 at 09:30; Stop 06/01/17 at 09:31; Status DC Pneumococcal Polyvalent Vaccine (Pneumovax 23) 0.5 ml ONCE ONCE VAX IM Last administered on 06/02/17at 13:00; Start 06/01/17 at 13:00; Stop 06/01/17 at 13:01; Status DC Vitamin D (Vitamin D3) 2,000 unit DAILY PO Last administered on 06/03/17at 08:20 ; Start 06/02/17 at 09:00 Dabigatran (Pradaxa) 75 mg BID PO Last administered on 06/03/17at 19:53; Start at 21:00 Levothyroxine Sodium (Synthroid) 75 mcg DAILY07 PO Last administered on at 05:25; Start 06/02/17 at 07:00 Pravastatin Sodium (Pravachol) 20 mg QHS PO Last administered on 06/03/17 19:53 ; Start 06/01/17 at 21:00 Calcium Carbonate/ Glycine (Oscal) 500 mg BIDWMEALS PO Last administered on 06/03 17:20; Start 06/01/17 at 18:00 Diltiazem HCl (Cardizem 24hr Cd) 180 mg DAILY PO Last administered on 06/03/17 08:19; Start 06/02/17 at 09:00 Cetirizine HCl (ZyrTEC) 10 mg DAILY PO Last administered on 06/03/17 08:19; Start 06/02/17 at 09:00 Losartan Potassium (Cozaar) 100 mg DAILY PO Last administered on 06/03/17 08:20 ; Start 06/02/17 at 09:00 Fish Oil (Fish Oil) 1,000 mg DAILY PO Last administered on 06/03/17 08:20; Start 06/02/17 at 09:00 Potassium Chloride (Klor-Con) 20 meq TIDWMEALS PO Last administered on 17:20; Start 06/01/17 at 18:00 Ceftriaxone Sodium 1 gm/ Sodium Chloride 50 ml @ 100 mls/hr Q24H IV ; Start 06/01/17 at 16:45; Status UNV Azithromycin (Zithromax) 500 mg QHS PO Last administered on 06/03/17 19:53; Start 06/01/17 at 18:00 Hydrochlorothiazide (Hydrodiuril) 25 mg DAILY PO Last administered on 06/03/17 08:20; Start 06/02/17 at 09:00 Ceftriaxone Sodium (Rocephin) 1 gm Q24H IVP Last administered on 06/03/17 17:21 ; Start 06/01/17 at 18:00 Lactobacillus Rhamnosus (Culturelle) 1 cap BID PO Last administered on 19:53; Start 06/01/17 at 21:00 Guaifenesin (Mucinex Er) 600 mg BID PO Last administered on 06/03/17 19:53; Start 06/03/17 at 21:00 Active Scripts Active Reported Claritin (Loratadine) 10 Mg Tablet 1 Tab PO DAILY [place] 3 1,000 Mg Softgel ([place]-3 Fatty Acids/Fish Oil) 1 Each Capsule 1 Each PO DAILY Calcium (Calcium Carbonate) 600 Mg Tablet 630 Mg PO BID Vitamin D3 (Cholecalciferol (Vitamin D3)) 1,000 Unit Tablet 2,000 Unit PO DAILY Biotin 300 Mcg Tablet 5,000 Mcg PO DAILY Pravastatin Sodium 20 Mg Tablet 1 Tab PO DAILY Losartan-Hctz 100-25 Mg Tab (Losartan/Hydrochlorothiazide) 1 Each Tablet 1 Tab PO DAILY Diltiazem Hcl Tablet (Diltiazem Hcl) 60 Mg Tablet 180 Mg PO DAILY Pradaxa (Dabigatran Etexilate Mesylate) 150 Mg Capsule 150 Mg PO BID Levothyroxine Sodium 75 Mcg Tablet 1 Tab PO DAILY Vitals/I & O Vital Sign - Last 24 Hours 06/03/17 06/03/17 06/03/17 06/03/17 11:16 14:29 19:36 20:48 Temp 98.3 98.5 98.9 Pulse 79 65 82 Resp 20 20 18 B/P (MAP) 133/71 (91) 111/65 (80) 132/69 (90) Pulse Ox 95 92 92 O2 Delivery Room Air Room Air Room Air Room Air 06/03/17 06/04/17 23:00 06:05 Temp 98.5 98.4 Pulse 91 Resp 18 20 B/P (MAP) 126/62 (83) 156/76 (102) Pulse Ox 92 O2 Delivery Room Air Room Air Intake and Output 06/03/17 06/03/17 06/04/17 15:00 23:00 07:00 Intake Total 960 ml 480 ml 0 ml Output Total 1100 ml 350 ml 900 ml Balance -140 ml 130 ml -900 ml RAYNE DESAI MD 06/04/17 0916: PROGRESS NOTES Assessment I have participated in the care of this patient and I have reviewed and agree with all pertinent clinical information above including history, exam, and recommendations. She is feeling better, and wishes to go home. She denies any shortness of breath or chest pain Constitutional: Well developed, well nourished, no acute distress, non-toxic appearance. HENT: Normocephalic, atraumatic, bilateral external ears normal, oropharynx moist, no oral exudates, nose normal. Eyes: JOSEMANUEL, EOMI, conjunctiva normal, no discharge. Neck: Normal range of motion, no tenderness, supple, no stridor. Cardiovascular: Irregular irregular. 2/6 systolic murmur. Thorax and Lungs: Left basal and one third Abdomen: Bowel sounds normal, soft, no tenderness, no masses, no pulsatile masses. Skin: Warm, dry, no erythema, no rash. Back: No tenderness, no CVA tenderness. Extremities: Intact distal pulses, no tenderness, no cyanosis, no clubbing, ROM intact, no edema. Neurologic: Alert and oriented X 3, normal motor function, normal sensory function, no focal deficits noted. Psychologic: Affect normal, judgement normal, mood normal. Impression Chest pain: Atypical pleuritic pain likely was limited to a pulmonary etiology. Chest CT angiography was negative. Troponins were negative. Her CT and chest x- ray did not show any evidence of pneumonia but she does have left basilar crackles. Permanent atrial fibrillation: Her rates are controlled. I would recommend that she go on Pradaxa 150 mg as a GFR has improved. Pradaxa is not weighed based Heart failure with preserved ejection fraction: She is euvolemic currently. This is probably precipitated by the respiratory illness and pulmonary hypertension. Her proBNP was only mildly elevated. Weight loss: Stress-related with diminished intake Pulmonary hypertension: Stable Nonrheumatic aortic regurgitation: Mild Problems: DANUTA CRUZ APRN Jun 04, 2017 08:42 RAYNE DESAI MD Jun 04, 2017 09:16
[2017-06-04] MEDS ORDERED: DABIGATRAN ETEXILATE 150 MG CAPSULE. PO SCH (09:00)
[2017-06-04] MEDS: POTASSIUM CHLORIDE 20 MEQ TABLET.ER. PO SCH (09:12)
[2017-06-04] MEDS: LACTOBACILLUS RHAMNOSUS GG 1 CAPSULE. PO SCH (09:12)
[2017-06-04] MEDS: CETIRIZINE HCL 10 MG TABLET PO SCH (09:12)
[2017-06-04] MEDS: CHOLECALCIFEROL (VITAMIN D3) 1,000 UNIT TABLET PO SCH (09:12)
[2017-06-04] MEDS: OMEGA-3 FATTY ACIDS/FISH OIL 1,000 MG CAPSULE. PO SCH (09:12)
[2017-06-04] MEDS: CALCIUM CARBONATE 500 MG TABLET PO SCH (09:12)
[2017-06-04] MEDS: LOSARTAN 50 MG TABLET. PO SCH (09:13)
[2017-06-04] MEDS: hydroCHLOROthiazide 25 MG TABLET PO SCH (09:13)
[2017-06-04 10:46] VITALS: BP 150/75
[2017-06-04] MEDS ORDERED: DABI150C PO (10:53)
[2017-06-04] MEDS ORDERED: GUAI600T47 PO (10:55)
[2017-06-04] MEDS ORDERED: POTA20TA4 PO (10:55)
--- NOTE | 2017-06-04 11:32 | PDOC3 ---
Discharge Summary Visit Information Date of Admission: Jun 01, 2017 Date of Discharge: Jun 04, 2017 Final Diagnosis Problems Medical Problems: (1) Acute chest pain Status: Acute (2) Atrial fibrillation Status: Acute (3) CHF (congestive heart failure) Status: Acute (4) Hypokalemia Status: Acute (5) Renal insufficiency Status: Acute ASSESSMENT: 1. Left-sided pleuritic chest pain aggravated with taking breath, possible community-acquired pneumonia. Plan is to continue with IV Rocephin and Zithromax.-X-RAY AND CHEST CT DID NOT SHOW PNEUMONIA-WILL NOT BE SENT HOME ON ANTIBIOTICS 2. Chronic atrial fibrillation, rate controlled, well anticoagulated.-PRADAXA INCREASED TO 150MG BID PER CARDIOLOGY. 3. Hypertension, well controlled. 4. Hyperlipidemia. 5. Hypothyroidism. The patient is both clinically and biochemically euthyroid. 6. Hypokalemia, resolved. Her potassium is up from 3.2 to 4.3. 7. Hyponatremia, resolved. Her serum sodium has risen from 131 to 133. Problems: Brief Hospital Course Allergies Allergies Coded Allergies Type Severity Reaction Last Updated Verified sulfamethoxazole Allergy Intermediate 06/01/17 Yes trimethoprim Allergy Intermediate 06/01/17 Yes Vital Signs Vital Signs Date Time Temp Pulse Resp B/P (MAP) Pulse Ox O2 Delivery O2 Flow Rate FiO2 06/04/17 10:46 98.4 96 20 150/75 (100) 95 Room Air 06/01/17 05:23 94.0 Lab Results Laboratory Tests Test 06/03/17 06:35 White Blood Count 7.2 x10^3/uL (4.0-11.0) Red Blood Count 3.84 x10^6/uL (3.50-5.40) Hemoglobin 11.7 g/dL (12.0-15.5) Hematocrit 33.9 % (36.0-47.0) Mean Corpuscular Volume 88 fL (79-100) Mean Corpuscular Hemoglobin 30 pg (25-35) Mean Corpuscular Hemoglobin Concent 34 g/dL (31-37) Red Cell Distribution Width 12.7 % (11.5-14.5) Platelet Count 340 x10^3/uL (140-400) Sodium Level 133 mmol/L (136-145) Potassium Level 4.3 mmol/L (3.5-5.1) Chloride Level 98 mmol/L (98-107) Carbon Dioxide Level 29 mmol/L (21-32) Anion Gap 6 (6-14) Blood Urea Nitrogen 19 mg/dL (7-20) Creatinine 0.8 mg/dL (0.6-1.0) Estimated GFR (Cockcroft-Gault) 67.7 Glucose Level 87 mg/dL (70-99) Calcium Level 9.0 mg/dL (8.5-10.1) Brief Hospital Course Ms. Lynn is a 87 old [sex] who presented with [ ] HISTORY OF PRESENT ILLNESS: The patient is an 87-year-old female patient who basically presented to Emergency Room with chief complaint of chest pain that basically started as generalized aches and pains with lack of appetite. At first, she thought she was coming down with a flu, but it lasted about 3 days without any fever, cough or shortness of breath and yesterday, she had a spontaneous return of her appetite. Last night, she developed abdominal discomfort for about an hour. It radiated up to the anterior chest. She went to bed and fell asleep. At about 03:00, this morning, she woke up to go to the bathroom and the pain got up into her throat and was going across the shoulder blades and it became so severe that she has to sit up in a recliner and the pain that seemed to get worse with activity and better if she could sit and relax. It was not associated with any shortness of breath, nausea, vomiting or diaphoresis. It increases with deep breathing. She finally decided to come into the Emergency Room for evaluation. By the time I saw her this afternoon, she was chest pain free. She was basically evaluated in the Emergency Room, she was found to have hypokalemia and her first set of cardiac enzyme was negative. She was admitted to do 2 more sets of cardiac enzyme and to consult the cardiology team. HER CT CHEST AND CXR WERE NEGATIVE FOR PNEUMONIA. SHE WAS SEEN BY CARDIOLOGY AND HER ANTICOAGULANT WAS ADJUSTED. SHE FELT WELL ENOUGH OT BE DISCHARGED ON 06/04 Discharge Information Condition at Discharge: Improved, Stable Disposition/Orders: D/C to Home w/ HH Dischare Medications Current Medications Nitroglycerin (Nitrostat) 0.4 mg PRN Q5MIN PRN SL CP RATING > 1/10; Start at 06:00; Stop 06/02/17 at 05:59; Status DC Morphine Sulfate (Morphine 2mg Syringe) 2 mg PRN Q15MIN PRN IV/SQ PAIN GREATER THAN 3/10; Start 06/01/17 at 06:00; Stop 06/02/17 at 05:59; Status DC Iohexol (Omnipaque 300 Mg/ml) 50 ml 1X ONCE IV ; Start 06/01/17 at 06:30; Stop 06/01/17 at 06:31; Status Cancel Iohexol (Omnipaque 300 Mg/ml) 50 ml 1X ONCE IV ; Start 06/01/17 at 06:30; Stop 06/01/17 at 06:31; Status Cancel Info (Do NOT chart on this entry -- for MONITORING) 1 each PRN DAILY PRN MC SEE COMMENTS; Start 06/01/17 at 06:30; Stop 06/03/17 at 06:29; Status DC Ondansetron HCl (Zofran) 4 mg 1X ONCE IV Last administered on 06/01/17at 07:11; Start 06/01/17 at 07:00; Stop 06/01/17 at 07:01; Status DC Sodium Chloride 500 ml @ 500 mls/hr 1X ONCE IV Last administered on 06/01/17at 07:10; Start 06/01/17 at 07:00; Stop 06/01/17 at 07:59; Status DC Famotidine (Pepcid Vial) 20 mg 1X ONCE IVP Last administered on 06/01/17at 07:11 ; Start 06/01/17 at 07:00; Stop 06/01/17 at 07:01; Status DC Potassium Chloride (Klor-Con) 40 meq 1X ONCE PO Last administered on 06/01/17at 07:11; Start 06/01/17 at 07:00; Stop 06/01/17 at 07:01; Status DC Iohexol (Omnipaque 300 Mg/ml) 75 ml 1X ONCE IV Last administered on 06/01/17at 06:55; Start 06/01/17 at 07:00; Stop 06/01/17 at 07:01; Status DC Fentanyl Citrate (Fentanyl 2ml Vial) 50 mcg 1X ONCE IM Last administered on 06/01/17at 07:41; Start 06/01/17 at 08:00; Stop 06/01/17 at 08:01; Status DC Ketorolac Tromethamine (Toradol) 30 mg 1X ONCE IV ; Start 06/01/17 at 09:30; Stop 06/01/17 at 09:31; Status DC Pneumococcal Polyvalent Vaccine (Pneumovax 23) 0.5 ml ONCE ONCE VAX IM Last administered on 06/02/17 13:00; Start 06/01/17 at 13:00; Stop 06/01/17 at 13:01; Status DC Vitamin D (Vitamin D3) 2,000 unit DAILY PO Last administered on 06/04/17 09:12 ; Start 06/02/17 at 09:00 Dabigatran (Pradaxa) 75 mg BID PO Last administered on 06/03/17 19:53; Start at 21:00; Stop 06/04/17 at 08:57; Status DC Levothyroxine Sodium (Synthroid) 75 mcg DAILY07 PO Last administered on 05:25; Start 06/02/17 at 07:00 Pravastatin Sodium (Pravachol) 20 mg QHS PO Last administered on 06/03/17 19:53 ; Start 06/01/17 at 21:00 Calcium Carbonate/ Glycine (Oscal) 500 mg BIDWMEALS PO Last administered on 06/04 09:12; Start 06/01/17 at 18:00 Diltiazem HCl (Cardizem 24hr Cd) 180 mg DAILY PO Last administered on 06/04/17 09:13; Start 06/02/17 at 09:00 Cetirizine HCl (ZyrTEC) 10 mg DAILY PO Last administered on 06/04/17 09:12; Start 06/02/17 at 09:00 Losartan Potassium (Cozaar) 100 mg DAILY PO Last administered on 06/04/17 09:13 ; Start 06/02/17 at 09:00 Fish Oil (Fish Oil) 1,000 mg DAILY PO Last administered on 06/04/17 09:12; Start 06/02/17 at 09:00 Potassium Chloride (Klor-Con) 20 meq TIDWMEALS PO Last administered on 09:12; Start 06/01/17 at 18:00 Ceftriaxone Sodium 1 gm/ Sodium Chloride 50 ml @ 100 mls/hr Q24H IV ; Start 06/01/17 at 16:45; Status UNV Azithromycin (Zithromax) 500 mg QHS PO Last administered on 06/03/17 19:53; Start 06/01/17 at 18:00 Hydrochlorothiazide (Hydrodiuril) 25 mg DAILY PO Last administered on 06/04/17 09:13; Start 06/02/17 at 09:00 Ceftriaxone Sodium (Rocephin) 1 gm Q24H IVP Last administered on 06/03/17 17:21 ; Start 06/01/17 at 18:00; Stop 06/04/17 at 10:33; Status DC Lactobacillus Rhamnosus (Culturelle) 1 cap BID PO Last administered on 09:12; Start 06/01/17 at 21:00 Guaifenesin (Mucinex Er) 600 mg BID PO Last administered on 06/04/17 09:12; Start 06/03/17 at 21:00 Dabigatran (Pradaxa) 150 mg BID PO Last administered on 06/04/17 09:12; Start 06/04/17 at 09:00 Cefpodoxime Proxetil (Vantin) 100 mg BIDWMEALS PO ; Start 06/04/17 at 17:00 Active Scripts Active Reported Claritin (Loratadine) 10 Mg Tablet 1 Tab PO DAILY Paris 3 1,000 Mg Softgel (Paris-3 Fatty Acids/Fish Oil) 1 Each Capsule 1 Each PO DAILY Calcium (Calcium Carbonate) 600 Mg Tablet 630 Mg PO BID Vitamin D3 (Cholecalciferol (Vitamin D3)) 1,000 Unit Tablet 2,000 Unit PO DAILY Biotin 300 Mcg Tablet 5,000 Mcg PO DAILY Pravastatin Sodium 20 Mg Tablet 1 Tab PO DAILY Losartan-Hctz 100-25 Mg Tab (Losartan/Hydrochlorothiazide) 1 Each Tablet 1 Tab PO DAILY Diltiazem Hcl Tablet (Diltiazem Hcl) 60 Mg Tablet 180 Mg PO DAILY Pradaxa (Dabigatran Etexilate Mesylate) 150 Mg Capsule 150 Mg PO BID Levothyroxine Sodium 75 Mcg Tablet 1 Tab PO DAILY Patient Instructions Patient Instuctions DISCHARGE INSTRUCTIONS GIVEN ON DISCHARGE ON [facility]. LINDA CANDELARIA DO Jun 04, 2017 11:32
[2017-06-04] MEDS ORDERED: CEFPODOXIME PROXETIL 100 MG TABLET PO SCH (17:00)
== END 2017-06-04 12:05 | disposition home health service (06) | DRG 194 ==
LOC: ER 05:23 → 1 SOUTH 07:47 → OBSVTOIN 08:00
PROVIDERS: ADMIT Internal Medicine; ATTEND Internal Medicine
DX: J18.9 Pneumonia, unspecified organism (principal); E87.1 Hypo-osmolality and hyponatremia; I27.20 Pulmonary hypertension, unspecified; I48.0 Paroxysmal atrial fibrillation; I11.0 Hypertensive heart disease with heart failure; E87.6 Hypokalemia; I50.9 Heart failure, unspecified; E03.9 Hypothyroidism, unspecified; E78.5 Hyperlipidemia, unspecified; I35.1 Nonrheumatic aortic (valve) insufficiency; E78.00 Pure hypercholesterolemia, unspecified; K59.00 Constipation, unspecified; N28.9 Disorder of kidney and ureter, unspecified; H35.30 Unspecified macular degeneration; R63.4 Abnormal weight loss; Z68.27 Body mass index [BMI] 27.0-27.9, adult; Z79.01 Long term (current) use of anticoagulants; Z79.899 Other long term (current) drug therapy; Z88.1 Allergy status to other antibiotic agents; Z90.49 Acquired absence of other specified parts of digestive tract; Z88.2 Allergy status to sulfonamides
CPT/HCPCS: 36415; 71045; 71275; 80048; 80053; 81001; 82550; 83690; 83880; 84443; 84484; 85025; 85027; 85379; 85610; 85730; 87804; 90732; 93005; 96372; 96374; 96375; G0379; J0456; J0696; J2405; J3010; J7040; Q9967; S0028; 99285-25

== ENCOUNTER 2017-06-16 16:15 | Emergency (ER) | payer MEDICARE ==
[~2017-06-16] VITALS: Ht 139.7 cm; Wt 54.0 kg
[~2017-06-16 16:15] MED LIST: BIOT300T PO; CALC600T4 PO; CHOL10003 PO; DABI150C PO; DILT60TA PO; GUAI600T47 PO; LEVO75TA5 PO; LORA10TA68 PO; LOSA1TAB22 PO; OMEG-33 PO; POTA20TA4 PO; PRAV20TA2 PO
--- NOTE | 2017-06-16 16:33 | PHYS DOC ---
Past History Past Medical History: A-Fib, Other Past Surgical History: Cholecystectomy Adult General Chief Complaint Chief Complaint: SHORTNESS OF BREATH [facility] HPI Patient is a 87 year old female who presents with seeing people who aren't there. She states she started prednisone yesterday and an antibiotic for an upper respiratory tract infection Pt. last night after she took the first dose Prednisone she started seeing odd things on the TV set such as a man's face that wasn't there. She then noticed strange creatures in her bedroom. She states she hardly slept all night long. She presents to ER complaining of shortness of breath when she gets up to ambulate and can't lay flat secondary to coughing. She has hx of subjective fevers, chills, nausea. Denies vomiting. She presents to ER with her daughter. She states is having emotional distress at this time because one of her daughters has been diagnosed with brain cancer for the second time. 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 She denies swelling . Pt. denies any travel or specific ill contacts. Pt. normally follows with Cora Yusuf as primary. Pt. earlier admitted to [place] for coughing, fever and chills on 06/01 and 06/02. Did have antibiotics for two days at that time and they where then stopped. Did have a small pleural effusion at that time. Pt. does have hx of Afib. and takes Pradaxa for anticoagulant. Pt. has daughter in law who works ICU at [employer] [facility] [employer] for medical support. Review of Systems Review of Systems Constitutional: Hx s fever and chills [] Eyes: Denies change in visual acuity, redness, or eye pain [] HENT: Denies nasal congestion or sore throat [] Respiratory: Positive for cough and shortness of breath Cardiovascular: No additional information not addressed in HPI [] GI: Denies abdominal pain, nausea, vomiting, bloody stools or diarrhea [] : Denies dysuria or hematuria [] Musculoskeletal: Denies back pain or joint pain [] Integument: Denies rash or skin lesions [] Neurologic: Denies headache, focal weakness or sensory changes [] Endocrine: Denies polyuria or polydipsia [] Complaints of Hallucinations All other systems were reviewed and found to be within normal limits, except as documented in this note. Family History Family History Non-contributory Current Medications Current Medications See Nursing for home meds Allergies Allergies Allergies Coded Allergies Type Severity Reaction Last Updated Verified sulfamethoxazole Allergy Intermediate 06/01/17 Yes trimethoprim Allergy Intermediate 06/01/17 Yes Physical Exam Physical Exam Constitutional: Moderately acute distress, non-toxic appearance. [] HENT: Normocephalic, atraumatic, bilateral external ears normal, oropharynx moist, no oral exudates, nose normal. [] Eyes: PERRLA, EOMI, conjunctiva normal, no discharge. [] Neck: Normal range of motion, no tenderness, supple, no stridor. JVD in sitting position. Cardiovascular:Regular Heart rate, ill regular rhythm, no murmur [] PMI to Lt. Lungs & Thorax: Bilateral breath sounds equal at apex with basilar crackles on auscultation . Lt. lower chest dull percussion and decreased breath sounds. Abdomen: Bowel sounds normal, soft, no tenderness, no masses, no pulsatile masses. [] Skin: Warm, dry, no erythema, no rash. Poor turgor. Back: No tenderness, no CVA tenderness. [] Extremities: No tenderness, no cyanosis, no clubbing, ROM intact, no edema. Kyphosis. [] No cording noted. Arthritic changes. Neurologic: Alert and oriented X 3, normal motor function, normal sensory function, no focal deficits noted. [] Psychologic: Affect anxious, judgement normal, mood normal. [] EKG EKG EKG shows irregular rhythm with a rate of 74 bpm without any concerning ST elevations or T-wave inversions, left axis deviation noted, QTC 460 ms, as interpreted by me. Radiology/Procedures Radiology/Procedures My interpretation of CXR show large pleural effusion, cardiomegaly and cephalization consistent with CHF. ( There was very small pleural effusion on 06/01/17 ) Post Chest tube CXR- resolution of pleural eff. CT results pending at time of transfer to [facility] Impressions: 1. Large Pleural Effusion - Dif. dx CHF versus empyema 2. Hx Fever and Chills 3. CHF- BNP 3159 4. UTI 5. Leukocytosis 6. Anemia 7. Thrombocytosis 8. Malnutrition alb. 2.9 9. Hyponatremia 10. Elev. Creat. 11. Dyspnea with Hypoxia- Resolved with Chest Tube 12. Hallucinations- suspect steroid induced Course & Med Decision Making Course & Med Decision Making Pertinent Labs and Imaging studies reviewed. (See chart for details) Labs, chest x-ray pending at this time. Patient being checked out to Dr. Contreras. With Hx. of only two days of antibiotics on 06/01, 06/02. Antibiotic s restarted yesterday for bronchitis. Hx. of increased dyspnea, fever and chills. Consider possible empyema. Will tap for sample of fluid. Pt. risks discussed. Area prepped, with Betadine, Lidocaine /Sensorcaine. Min. return of clotted blood via [address] 28 fr. chest tube to remove fluid, obtain labs and improve dyspnea . Injected Lt. Anterior axillary line and incision T- 5 level after costal blocks of Lidocaine and Sensorcaine. Pt. did receive interment dosages of 25 angle of Fentanyl IV. Immediate return of over 1000cc hemorrhagic pleural fluid. Sample sent for labs. Suture Chest tube in place. Dressing. Good pleural variation, No leak. Immediate improvements of Sats. and less dyspnea. Post Chest Tube X ray there was some kinking of chest tube, but is functioning well. [Will leave in current position. Pt. Hx. of Fever, chills, increased dyspnea and dyspnea- Possible CHF vs empyema. Critical Care- 90 minutes Discussed presentation, testing and tx. plan with Dr. Irizarry. Will transfer to [facility] for cardiology and pulmonary consult. Labs on Pleural fluid pending at time of transfer. Dragon Disclaimer Dragon Disclaimer This electronic medical record was generated, in whole or in part, using a voice recognition dictation system. Departure Departure: Referrals: CORA YUSUF APRN (PCP) AXEL ALEJANDRO MD Jun 16, 2017 16:33 GISEL CONTRERAS MD Jun 16, 2017 23:12
[2017-06-16 17:35] LABS: AMPHETAMINE/METHAMPHETAMINE NEG (NEG); BARBITURATES NEG (NEG); BENZODIAZEPINES NEG (NEG); CANNABINOIDS NEG (NEG); COCAINE NEG (NEG); METHADONE NEG (NEG); OPIATES NEG (NEG); PHENCYCLIDINE NEG (NEG)
[2017-06-16 17:37] LABS: BASO % 0 % (0-3); EOS % 0 % (0-3); HEMOGLOBIN 11.8 g/dL (12.0-15.5); LYMPH # 0.4 x10^3/uL (1.0-4.8); LYMPH % 4 % (24-48); MEAN CORPUSCULAR HEMOGLOBIN 29 pg (25-35); MEAN CORPUSCULAR HGB CONC 34 g/dL (31-37); MEAN CORPUSCULAR VOLUME 87 fL (79-100); MONO # 0.3 x10^3/uL (0.0-1.1); MONO % 3 % (0-9); NEUT # 10.7 x10^3uL (1.8-7.7); NEUT % 93 % (31-73); PLATELET COUNT 693 x10^3/uL (140-400); RED BLOOD COUNT 4.01 x10^6/uL (3.50-5.40); RED CELL DISTRIBUTION WIDTH 13.4 % (11.5-14.5); WHITE BLOOD COUNT 11.4 x10^3/uL (4.0-11.0)
[2017-06-16 18:00] LABS: BACTERIA,URINE FEW /HPF (0-FEW); BILIRUBIN,URINE NEG (NEG); CLARITY,URINE CLEAR; COLOR,URINE YELLOW; GLUCOSE,URINE NEG (NEG); HYALINE CASTS, URINE OCC /HPF; NITRITE,URINE NEG (NEG); SQUAMOUS EPITHELIAL CELL,UR OCC /LPF; UROBILINOGEN,URINE 0.2 mg/dL (0.2 mg/dL)
--- NOTE | 2017-06-16 18:08 | EKG ---
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
[2017-06-16 18:09] LABS: ALBUMIN 2.9 g/dL (3.4-5.0); CALCIUM 9.3 mg/dL (8.5-10.1); CREATININE 1.1 mg/dL (0.6-1.0); DIRECT BILIRUBIN 0.1 mg/dL (0.0-0.2); GFR 46.9; MAGNESIUM 1.9 mg/dL (1.8-2.4); POTASSIUM 3.7 mmol/L (3.5-5.1); TOTAL BILIRUBIN 0.3 mg/dL (0.2-1.0); TOTAL PROTEIN 7.8 g/dL (6.4-8.2)
[2017-06-16] MEDS ORDERED: LIDOCAINE 2% 20 ML VIAL. ONE ×2 (19:00→21:22)
[2017-06-16] MEDS ORDERED: FUROSEMIDE 40 MG/4 ML VIAL IVP ONE (19:45)
[2017-06-16] MEDS ORDERED: IOHEXOL 300 MG/ML 75 ML VIAL. IV ONE (20:00)
[2017-06-16] MEDS ORDERED: CONTRAST GIVEN MC PRN (20:00)
[2017-06-16] MEDS ORDERED: IV NORMAL SALINE 50ML 50 ML ONE (20:55)
[2017-06-16] MEDS ORDERED: cefTRIAXone SODIUM 1 GM VIAL IV ONE (20:55)
--- NOTE | 2017-06-16 21:14 | RAD ---
Indication: Dyspnea. History of A. fib. TECHNIQUE: CT angiogram of the chest with 60 mL of Omnipaque 300 with multiplanar MIP reformats. COMPARISON: Previous study from 06/01/2017. FINDINGS: Diagnostic quality PE study. There are no central, segmental or subsegmental filling defects in the pulmonary arteries. Heart is normal in size. Small pericardial and small to moderate bilateral pleural effusions noted. No axillary, hilar adenopathy. Enlarged mediastinal lymph nodes noted, the largest in the subcarina measuring 1.4 x 1.3 cm. Large left pneumothorax noted. There is no significant mediastinal shift. Focal consolidations are seen in the bilateral lower lobes. The central airways are patent. Visualized sections through the liver, spleen, pancreas, adrenals within normal limits. Partially visualized is a 1.4 cm renal lesion. No suspicious bony lesion. Soft tissue emphysema is seen in the left posterior back. IMPRESSION: 1. No PE. 2. Small pericardial and small to moderate bilateral pleural effusions. 3. Large left pneumothorax with no significant mediastinal shift. 3. Consolidations in the bilateral lower lobes likely secondary to passive atelectasis of the adjacent pleural effusion. Pneumonia not ruled out. 4. Mediastinal lymphadenopathy likely reactive. 5. Partially visualized left renal lesion. Nonemergent dedicated triple phase CT abdomen or MRI recommended. Critical findings were identified on 06/16/2017 8:58 PM, read back and verified with Dr. Shepard ER on 06/16/2017 9:[address] Ricardo Hung DO. In Electronically signed by: Ricardo Hung DO (06/16/2017 9:11 PM) [facility]
[2017-06-16] MEDS ORDERED: BUPIVACAINE PF 0.75% 10 ML VIAL ONE (21:22)
[2017-06-16] MEDS ORDERED: LIDOCAINE 2% SYRINGE 100 MG/5 ML DISP.SYRIN. INJ ONE (21:45)
[2017-06-16] MEDS ORDERED: BUPIVACAINE MPF 0.5% 30 ML VIAL. SQ ONE (22:00)
[2017-06-16] MEDS ORDERED: LIDOCAINE 2% 20 ML VIAL. IJ ONE (22:00)
[2017-06-16 23:09] VITALS: BP 147/78
--- NOTE | 2017-06-17 07:55 | RAD ---
Indication: Post chest tube Technique: Portable AP chest with due to subtraction. Comparison: Study from the same day earlier Findings: Interval placement of left-sided chest tube with its tip projecting in the medial aspect of the left lower lung zone. There is significant improvement in the previously seen left-sided pneumothorax. Currently there is a small pneumothorax measuring 13 mm from the chest wall. Heart is mildly enlarged in size. Linear lucencies seen along the right lower lateral inner chest wall. Left basilar consolidation noted. Visualized bony thorax is within normal limits. Impression: 1. Interval improvement in the left-sided pneumothorax. Currently there is small pneumothorax. 2. Suggestion of small right-sided pneumothorax versus a skinfold. Repeat chest x-ray recommended.
--- NOTE | 2017-06-17 08:25 | RAD ---
Indication: Pleural effusion Technique: PA and lateral views of the chest Comparison: Previous study from 06/17/1979 no earlier Findings: Large left pneumothorax noted. Moderate left pleural effusion. No significant mediastinal shift. Right lung is clear. Visualized bony thorax within normal limits. Impression: Large left pneumothorax with moderate pleural effusion. Findings were relayed when a follow-up CT chest was reported. The subsequent plain films demonstrate placement of left-sided chest tube with improvement in the pneumothorax.
--- NOTE | 2017-06-17 08:30 | RAD ---
Indication: Shortness of breath Technique: Portable AP upright chest x-ray Comparison: Previous study from 06/01/2017 Findings: There is moderate amount of left pleural effusion. Right lung and left upper and midlung zones are clear. No pneumothorax. Visualized bony thorax within normal limits. Impression: Moderate left pleural effusion with underlying consolidation which may be secondary to passive atelectasis or pneumonia.
--- NOTE | 2017-06-19 14:10 | PATHOLOGY ---
CYTOPATHOLOGY REPORT CLINICAL HISTORY: SOA, Seeing images. SPECIMEN(S) RECEIVED: A.Pleural fluid FINAL DIAGNOSIS: A. Pleural fluid, ThinPrep and cell block: - Few reactive mesothelial cells and inflammatory cells are identified within a background of red blood cells. (JPM:db; 06/19/2017) PATHOLOGIST: Reinier Carroll M.D. REPORT ELECTRONICALLY SIGNED BY: Reinier Carroll M.D. DATE/TIME: 06/19/2017 14:09 GROSS PATHOLOGY: A. Pleural fluid: The specimen is submitted unfixed, labeled "Cristal Lynn". Received by the Cytology Department is three mL of red fluid. One ThinPrep slide and a formalin fixed cell block were prepared. (clt 06.18.2017) SULFONATOR OPERATOR(S): CINDY Marino([facility]) INITIAL CPT CODE(S): A; 56442, 52835 Professional services performed by [facility] [place] [address] Technical services performed by [facility] at [address] [place] [address], [address], [place] [address]. CC: Cora Yusuf APRN PATIENT: CRISTAL LYNN /AGE: 1 1930 (Age: 87) SEX: F PATIENT #: [id number] ALT CASE #: SPECIMEN COLLECTION DATE: 06/16/2017 SPECIMEN RECEIVED DATE: 06/18/[address] [facility] [address] [place] [address], [address] [place] [address] PHONE: [phone] DIRECTOR: Tylor Evans M.D. * * * END OF REPORT * * *
== END 2017-06-16 23:36 | disposition short-term general hospital (02) ==
LOC: ER 16:15
DX: J90 Pleural effusion, not elsewhere classified (principal); I50.9 Heart failure, unspecified; N39.0 Urinary tract infection, site not specified; D72.829 Elevated white blood cell count, unspecified; D64.9 Anemia, unspecified; R79.89 Other specified abnormal findings of blood chemistry; D47.3 Essential (hemorrhagic) thrombocythemia; E46 Unspecified protein-calorie malnutrition; E87.1 Hypo-osmolality and hyponatremia; R44.1 Visual hallucinations; I48.91 Unspecified atrial fibrillation; Z88.2 Allergy status to sulfonamides; Z88.1 Allergy status to other antibiotic agents
CPT/HCPCS: 32551; 36415; 71045; 71046; 71275; 80048; 80076; 80307; 81001; 82553; 82945; 83615; 83735; 83880; 83986; 84157; 84443; 84484; 85025; 87040; 87071; 87075; 87086; 87102; 87116; 93005; 96361; 96374; 96375; 99291; 99292; J0696; J1940; J3010; J3490; Q9967; 87186; 88112; 88305; G0479; J2001

== ENCOUNTER → 2017-06-28 | Outpatient (CLI) | payer MEDICARE ==
[2017-06-16 23:09] VITALS: BP 147/78
--- NOTE | 2017-06-28 15:24 | RAD ---
Two-view of the Chest 06/28/2017 2:00 AM Indication: SHORT OF AIR Comparison: Chest radiograph June 16, 2017 Findings: Interval removal of left thoracostomy tube. Minimal infiltrate or contusion is seen at the site of prior thoracostomy tube. No definitive pneumothorax is seen. There is a small left pleural effusion. Heart size is normal. Bony thorax appears to be intact. Impression: 1. Small left pleural effusion 2. Interval removal of left thoracostomy tube. Minimal infiltrate or contusion is seen at the site of prior thoracostomy tube. No pneumothorax is identified
== END | disposition home or self-care (01) ==
LOC: PMG 15:02
PROVIDERS: ATTEND Nurse Practitioner Family
DX: J90 Pleural effusion, not elsewhere classified (principal); Z46.82 Encounter for fitting and adjustment of non-vascular catheter
CPT/HCPCS: 71046

== ENCOUNTER → 2017-07-13 | Outpatient (CLI) | payer MEDICARE ==
[2017-06-16 23:09] VITALS: BP 147/78
[2017-07-13 14:53] LABS: BASO % 1 % (0-3); EOS % 0 % (0-3); HEMATOCRIT 34.4 % (36.0-47.0); HEMOGLOBIN 11.5 g/dL (12.0-15.5); LYMPH % 26 % (24-48); MEAN CORPUSCULAR HEMOGLOBIN 29 pg (25-35); MEAN CORPUSCULAR HGB CONC 33 g/dL (31-37); MEAN CORPUSCULAR VOLUME 87 fL (79-100); MONO # 0.9 x10^3/uL (0.0-1.1); MONO % 12 % (0-9); NEUT # 4.8 x10^3uL (1.8-7.7); NEUT % 62 % (31-73); PLATELET COUNT 407 x10^3/uL (140-400); RED BLOOD COUNT 3.96 x10^6/uL (3.50-5.40); RED CELL DISTRIBUTION WIDTH 14.8 % (11.5-14.5); WHITE BLOOD COUNT 7.8 x10^3/uL (4.0-11.0)
--- NOTE | 2017-07-13 15:21 | RAD ---
Chest, 2 views, 07/13/2017: History: Follow-up pneumonia Comparison is made to a study from 06/28/2017. The heart size and pulmonary vascularity are normal. The lungs are hyperexpanded. The left-sided pleural effusion continues to decrease. There is a small amount of residual pleural fluid with underlying atelectasis. A linear opacity in the left base laterally may represent atelectasis or a fissural collection of pleural fluid. No significant right lung infiltrate is seen. There is no evidence of pneumothorax. IMPRESSION: Resolving left pleural effusion with a small amount of residual left-sided pleural fluid and underlying atelectasis.
[2017-07-13 16:06] LABS: SEDIMENTATION RATE 44 (0-25)
== END | disposition home or self-care (01) ==
LOC: PMG 14:19
PROVIDERS: ATTEND Nurse Practitioner Family
DX: J98.11 Atelectasis (principal); J90 Pleural effusion, not elsewhere classified
CPT/HCPCS: 36415; 71046; 85025; 85651

== ENCOUNTER → 2019-01-06 | Outpatient (CLI) | payer MEDICARE ==
[~2019-01-06] MED LIST changes: -BIOT300T PO; +BIOT300T4 PO
[2019-01-06 12:23] LABS: ALBUMIN 3.7 g/dL (3.4-5.0); ALBUMIN/GLOBULIN RATIO 0.9 (1.0-1.7); GFR 52.2; POTASSIUM 4.1 mmol/L (3.5-5.1); TOTAL BILIRUBIN 0.5 mg/dL (0.2-1.0); TOTAL PROTEIN 7.9 g/dL (6.4-8.2)
== END | disposition home or self-care (01) ==
LOC: LAB 11:24
PROVIDERS: ATTEND Nurse Practitioner
DX: E78.5 Hyperlipidemia, unspecified (principal)
CPT/HCPCS: 36415; 80053; 80061